=== PATIENT | female | born 1970 | race Caucasian/White ===

== ENCOUNTER 2021-08-21 07:30 | Inpatient (IN) | payer OTHER ==
[~2021-08-21] VITALS: Ht 157.5 cm; Wt 44.2 kg
[2021-08-21] VITALS (23 sets, daily range): BP systolic 80–152; BP diastolic 48–95
[2021-08-21] MEDS ORDERED: 0.9%NACL 1000ML 1,000 ML IV ONE ×2 (08:06→09:30)
[2021-08-21 08:13] LABS: BASOPHILS % (AUTO) 0.2 % (0.0-5.0); EOSINOPHILS % (AUTO) 0.3 % (0.0-8.0); LYMPHOCYTES % (AUTO) 5.7 % (21.0-51.0); MEAN CORPUSCULAR HEMOGLOBIN 27.9 pg (27.0-33.0); MEAN CORPUSCULAR HGB CONC 30.9 g/dL (32.0-36.0); MEAN CORPUSCULAR VOLUME 90.4 fL (79-99); MONOCYTES % (AUTO) 5.3 % (3.0-13.0); NEUTROPHILS % (AUTO) 87.9 % (40.0-77.0); PLATELET COUNT (AUTO) 380 K/uL (130-400); RED BLOOD CELL COUNT(AUTO) 2.08 MIL/uL (4.00-5.50); RED CELL DISTRIBUTION WIDTH 14.6 % (11.0-15.5); WHITE BLOOD COUNT (AUTO) 21.6 K/uL (4.8-10.8)
[2021-08-21 08:22] LABS: HEMATOCRIT 18.8 % (36-48)
[2021-08-21] MEDS ORDERED: HYDROMORPHONE 1 MG INJ ONE (08:23)
[2021-08-21] MEDS ORDERED: ONDANSETRON 4MG INJ ONE (08:23)
[2021-08-21 08:34] LABS: ALBUMIN 2.5 g/dL (3.5-5.0); BILIRUBIN,TOTAL 0.1 mg/dL (0.2-1.0); CREATININE 0.6 mg/dL (0.5-1.5); POTASSIUM 3.4 mmol/L (3.5-5.1); TOTAL PROTEIN, SERUM 5.2 g/dL (6.0-8.3)
[2021-08-21] MEDS ORDERED: 0.9%NACL 1000ML 1,000 ML IV STA (09:18)
[2021-08-21] MEDS ORDERED: ONDANSETRON 4MG INJ IVP ONE (09:30)
[2021-08-21] MEDS ORDERED: HYDROMORPHONE 1 MG INJ IVP ONE (09:30)
[2021-08-21] MEDS ORDERED: FENTANYL CITRATE PF 50 MCG/1 ML 2ML VIAL IVP ONE (10:00)
[2021-08-21 10:28] LABS: RETICULOCYTE % (AUTO) 2.73 % (0.42-2.23)
[2021-08-21] MEDS ORDERED: ACETAMINOPHEN 325 MG TAB PO PRN ×2 (10:30)
[2021-08-21] MEDS ORDERED: ONDANSETRON 4MG INJ IV PRN (10:30)
[2021-08-21 10:32] LABS: INR 1.02 (0.85-1.15); PROTHROMBIN TIME 11.1 SEC (9.6-11.6)
[2021-08-21 10:34] LABS: PARTIAL THROMBOPLASTIN TIME 24.1 SEC (26.3-35.5)
[2021-08-21 10:36] LABS: HEMOGLOBIN A1C 4.2 % (4.0-6.0)
[2021-08-21] MEDS: LACTATED RINGERS 1000ML 1,000 ML IV SCH ×2 (11:10→20:30)
[2021-08-21 11:27] LABS: HEMATOCRIT 18.8 % (36-48)
[2021-08-21] MEDS ORDERED: MIDAZOLAM HCL 1 MG/ML 2ML VIAL ONE (11:29)
[2021-08-21] MEDS ORDERED: LACTATED RINGERS 1000ML 1,000 ML IV ONE (11:30)
[2021-08-21] MEDS ORDERED: CALCIUM GLUC 1GM/10ML VIAL IVPB SCH (11:30)
[2021-08-21] MEDS ORDERED: NOREPINEPHRIN 4MG/NS 250ML 250 ML IV SCH (11:30)
[2021-08-21] MEDS ORDERED: 0.9%NACL 50ML IV SCH (11:30)
[2021-08-21] MEDS ORDERED: LIDOCAINE HCL 1% MDV 50ML VIAL ONE (11:47)
[2021-08-21] MEDS ORDERED: IOHEXOL-350 50ML VIAL IV ONE ×2 (11:49→11:53)
[2021-08-21] MEDS ORDERED: LACTATED RINGERS 1000ML IV SCH (12:00)
[2021-08-21] MEDS ORDERED: ZOSYN 3.375GM +NS 50ML IV SCH (12:00)
[2021-08-21] MEDS ORDERED: NOREPINEPHRINE BITARTRATE 1 MG/1 ML ML IV ONE (12:22)
[2021-08-21 12:24] LABS: HEMATOCRIT 26.2 % (36-48)
[2021-08-21] MEDS ORDERED: FENTANYL CITRATE PF 50 MCG/1 ML 2ML VIAL ONE ×2 (12:27→14:12)
[2021-08-21] MEDS ORDERED: TRANEXAMIC ACID 1000MG/10ML IV SCH (12:30)
[2021-08-21] MEDS ORDERED: IOHEXOL 350 MG/ML 100ML INFUS..BTL IV ONE (13:01)
[2021-08-21] MEDS ORDERED: METOPROLOL TARTRATE 1 MG/ML 5ML VIAL IV ONE (14:00)
[2021-08-21] MEDS ORDERED: FENTANYL CITRATE PF 50 MCG/1 ML 2ML VIAL IVP PRN (14:30)
[2021-08-21 14:31] LABS: HEMATOCRIT 31.5 % (36-48)
[2021-08-21] MEDS ORDERED: TRAN650T5 PO (14:41)
[2021-08-21] MEDS ORDERED: GABA-533 PO (14:41)
[2021-08-21] MEDS ORDERED: FENT12PAT TD (14:41)
[2021-08-21] MEDS ORDERED: HYDR4TAB56 PO (14:43)
[2021-08-21] MEDS ORDERED: TRANEXAMIC ACID 1,000 MG in 0.9%NACL 100ML 100 ML IV SCH (15:00)
[2021-08-21] MEDS: ZOSYN 3.375GM +NS 50ML IV SCH (15:10)
[2021-08-21] MEDS: FENTANYL CITRATE PF 50 MCG/1 ML 2ML VIAL IVP PRN (16:17)
[2021-08-21 18:01] LABS: HEMATOCRIT 29.5 % (36-48)
[2021-08-21] MEDS: MORPHINE 10MG VIAL IVP PRN ×2 (18:15→21:47)
[2021-08-21 21:47] LABS: HEMATOCRIT 25.8 % (36-48)
[2021-08-21 23:59] LABS: HEMATOCRIT 25.2 % (36-48)
[2021-08-22] VITALS (24 sets, daily range): BP systolic 105–176; BP diastolic 59–99
[2021-08-22] MEDS: FENTANYL CITRATE PF 50 MCG/1 ML 2ML VIAL IVP PRN ×2 (02:13→07:52)
[2021-08-22] MEDS: ZOSYN 3.375GM +NS 50ML IV SCH ×4 (03:30→20:09)
[2021-08-22] MEDS: MORPHINE 10MG VIAL IVP PRN ×2 (03:39→09:22)
[2021-08-22] MEDS: LACTATED RINGERS 1000ML 1,000 ML IV SCH ×2 (06:59→17:07)
[2021-08-22 08:06] LABS: BASOPHILS % (AUTO) 0.1 % (0.0-5.0); EOSINOPHILS % (AUTO) 0.1 % (0.0-8.0); HEMATOCRIT 32.5 % (36-48); LYMPHOCYTES % (AUTO) 5.1 % (21.0-51.0); MEAN CORPUSCULAR HEMOGLOBIN 27.9 pg (27.0-33.0); MEAN CORPUSCULAR HGB CONC 34.5 g/dL (32.0-36.0); MEAN CORPUSCULAR VOLUME 80.8 fL (79-99); NEUTROPHILS % (AUTO) 86.2 % (40.0-77.0); PLATELET COUNT (AUTO) 138 K/uL (130-400); RED BLOOD CELL COUNT(AUTO) 4.02 MIL/uL (4.00-5.50); RED CELL DISTRIBUTION WIDTH 15.4 % (11.0-15.5); WHITE BLOOD COUNT (AUTO) 23.2 K/uL (4.8-10.8)
[2021-08-22 08:16] LABS: ALBUMIN 2.5 g/dL (3.5-5.0); BILIRUBIN,TOTAL 0.7 mg/dL (0.2-1.0); POTASSIUM 4.1 mmol/L (3.5-5.1); TOTAL PROTEIN, SERUM 5.3 g/dL (6.0-8.3)
[2021-08-22] MEDS ORDERED: GABAPENTIN 100 MG CAPSULE PO SCH (08:30)
[2021-08-22] MEDS: PANTOPRAZOLE 40 MG/VIAL IVP SCH (09:20)
[2021-08-22] MEDS: GABAPENTIN 100 MG CAPSULE PO PRN ×2 (09:22→20:58)
[2021-08-22] MEDS: HYDROMORPHONE PCA 10 MG/50 ML 50 ML IV PRN (11:17)
[2021-08-22] MEDS: DOCUSATE SODIUM 100 MG CAP PO SCH ×2 (11:42→17:08)
[2021-08-22] MEDS: ACETAMINOPHEN 500 MG TABLET PO SCH ×3 (11:42→22:46)
[2021-08-22] MEDS ORDERED: 0.9%NACL 50ML 50 ML IV ONE (20:01)
[2021-08-22 21:33] LABS: HEMATOCRIT 28.3 % (36-48)
[2021-08-23] VITALS (23 sets, daily range): BP systolic 113–186; BP diastolic 59–87
[2021-08-23] MEDS: DOCUSATE SODIUM 100 MG CAP PO SCH ×3 (03:52→18:23)
[2021-08-23] MEDS: LACTATED RINGERS 1000ML 1,000 ML IV SCH ×3 (03:53→18:23)
[2021-08-23] MEDS: ZOSYN 3.375GM +NS 50ML IV SCH ×3 (03:53→18:23)
[2021-08-23 03:55] LABS: BASOPHILS % (AUTO) 0.1 % (0.0-5.0); EOSINOPHILS % (AUTO) 0.1 % (0.0-8.0); HEMATOCRIT 27.6 % (36-48); LYMPHOCYTES % (AUTO) 4.2 % (21.0-51.0); MEAN CORPUSCULAR HEMOGLOBIN 27.9 pg (27.0-33.0); MEAN CORPUSCULAR HGB CONC 33.3 g/dL (32.0-36.0); MEAN CORPUSCULAR VOLUME 83.6 fL (79-99); MONOCYTES % (AUTO) 7.4 % (3.0-13.0); NEUTROPHILS % (AUTO) 87.1 % (40.0-77.0); PLATELET COUNT (AUTO) 102 K/uL (130-400); RED CELL DISTRIBUTION WIDTH 15.7 % (11.0-15.5); WHITE BLOOD COUNT (AUTO) 17.2 K/uL (4.8-10.8)
[2021-08-23 04:15] LABS: ALBUMIN 2.1 g/dL (3.5-5.0); BILIRUBIN,TOTAL 0.5 mg/dL (0.2-1.0); CREATININE 0.5 mg/dL (0.5-1.5); POTASSIUM 3.4 mmol/L (3.5-5.1)
[2021-08-23] MEDS: ACETAMINOPHEN 500 MG TABLET PO SCH (05:18)
[2021-08-23] MEDS: GABAPENTIN 100 MG CAPSULE PO PRN (05:19)
[2021-08-23] MEDS ORDERED: GABAPENTIN 100 MG CAPSULE PO SCH (08:30)
[2021-08-23] MEDS ORDERED: POTASSIUM CHLORIDE 20MEQ/100ML 100 ML IV PRN (08:30)
[2021-08-23] MEDS ORDERED: POTASSIUM CHLORIDE 10% ELIXIR 20 MEQ/15 ML UDCUP PO PRN (08:30)
[2021-08-23] MEDS ORDERED: LIDOCAINE HCL-MPF 1% 2ML VIAL IV PRN (08:30)
[2021-08-23] MEDS: SENNOSIDES 8.6 MG TABLET PO SCH (09:10)
[2021-08-23] MEDS: PANTOPRAZOLE 40 MG/VIAL IVP SCH (09:10)
[2021-08-23 09:44] LABS: HEMATOCRIT 27.2 % (36-48)
[2021-08-23] MEDS ORDERED: 0.9%NACL 50ML 50 ML IV ONE ×2 (11:48→17:28)
[2021-08-23] MEDS: ACETAMINOPHEN WITH CODEINE 1 TAB TAB PO PRN (18:23)
[2021-08-23] MEDS: KCL 20 MEQ ERTAB PO PRN (18:24)
[2021-08-23 21:44] LABS: HEMATOCRIT 28.8 % (36-48)
[2021-08-24] VITALS (22 sets, daily range): BP systolic 140–176; BP diastolic 35–88
[2021-08-24] MEDS: DOCUSATE SODIUM 100 MG CAP PO SCH ×3 (01:56→18:00)
[2021-08-24] MEDS: ZOSYN 3.375GM +NS 50ML IV SCH ×3 (04:02→19:57)
[2021-08-24 04:15] LABS: BASOPHILS % (AUTO) 0.1 % (0.0-5.0); EOSINOPHILS % (AUTO) 0.1 % (0.0-8.0); HEMATOCRIT 27.8 % (36-48); LYMPHOCYTES % (AUTO) 3.6 % (21.0-51.0); MEAN CORPUSCULAR HEMOGLOBIN 27.7 pg (27.0-33.0); MEAN CORPUSCULAR HGB CONC 32.7 g/dL (32.0-36.0); MEAN CORPUSCULAR VOLUME 84.5 fL (79-99); MONOCYTES % (AUTO) 6.2 % (3.0-13.0); NEUTROPHILS % (AUTO) 88.9 % (40.0-77.0); PLATELET COUNT (AUTO) 140 K/uL (130-400); RED BLOOD CELL COUNT(AUTO) 3.29 MIL/uL (4.00-5.50); RED CELL DISTRIBUTION WIDTH 15.3 % (11.0-15.5); WHITE BLOOD COUNT (AUTO) 20.1 K/uL (4.8-10.8)
[2021-08-24] MEDS: GABAPENTIN 100 MG CAPSULE PO PRN ×2 (04:19→21:10)
[2021-08-24] MEDS: ACETAMINOPHEN WITH CODEINE 1 TAB TAB PO PRN ×3 (04:19→21:10)
[2021-08-24 04:32] LABS: CREATININE 0.4 mg/dL (0.5-1.5); MAGNESIUM 1.8 mg/dL (1.80-2.40); POTASSIUM 3.2 mmol/L (3.5-5.1)
[2021-08-24 04:33] LABS: ALBUMIN 2.1 g/dL (3.5-5.0); BILIRUBIN,TOTAL 0.5 mg/dL (0.2-1.0); TOTAL PROTEIN, SERUM 5.7 g/dL (6.0-8.3)
[2021-08-24] MEDS: HYDROMORPHONE PCA 10 MG/50 ML 50 ML IV PRN (06:00)
[2021-08-24] MEDS: PANTOPRAZOLE 40 MG/VIAL IVP SCH (07:56)
[2021-08-24] MEDS: SENNOSIDES 8.6 MG TABLET PO SCH (07:56)
[2021-08-24] MEDS: LACTATED RINGERS 1000ML 1,000 ML IV SCH (08:01)
[2021-08-24] MEDS: KCL 20 MEQ ERTAB PO PRN ×3 (08:29→12:26)
[2021-08-24] MEDS ORDERED: MAGNESIUM 2GM PREMIX 50ML 50 ML IV PRN (10:30)
[2021-08-24] MEDS ORDERED: 0.9%NACL 50ML 50 ML IV ONE ×2 (10:51→19:41)
[2021-08-24] MEDS ORDERED: COMPOUND IV MISC 1 EACH IVSOLN MISC PRN (11:00)
[2021-08-25] VITALS (7 sets, daily range): BP systolic 138–173; BP diastolic 56–86
[2021-08-25] MEDS: DOCUSATE SODIUM 100 MG CAP PO SCH ×3 (01:18→17:25)
[2021-08-25] MEDS: ZOSYN 3.375GM +NS 50ML IV SCH ×3 (01:18→18:48)
[2021-08-25] MEDS: HYDROMORPHONE PCA 10 MG/50 ML 50 ML IV PRN (01:24)
[2021-08-25] MEDS: ACETAMINOPHEN WITH CODEINE 1 TAB TAB PO PRN ×2 (03:26→11:52)
[2021-08-25] MEDS: GABAPENTIN 100 MG CAPSULE PO PRN ×2 (03:26→11:53)
[2021-08-25 04:33] LABS: BASOPHILS % (AUTO) 0.3 % (0.0-5.0); EOSINOPHILS % (AUTO) 0.8 % (0.0-8.0); HEMATOCRIT 28.3 % (36-48); LYMPHOCYTES % (AUTO) 4.3 % (21.0-51.0); MEAN CORPUSCULAR HGB CONC 32.9 g/dL (32.0-36.0); MEAN CORPUSCULAR VOLUME 85.2 fL (79-99); MONOCYTES % (AUTO) 6.3 % (3.0-13.0); NEUTROPHILS % (AUTO) 87.4 % (40.0-77.0); PLATELET COUNT (AUTO) 181 K/uL (130-400); RED BLOOD CELL COUNT(AUTO) 3.32 MIL/uL (4.00-5.50); RED CELL DISTRIBUTION WIDTH 15.2 % (11.0-15.5)
[2021-08-25 04:50] LABS: CREATININE 0.5 mg/dL (0.5-1.5); MAGNESIUM 2.1 mg/dL (1.80-2.40); POTASSIUM 3.7 mmol/L (3.5-5.1)
[2021-08-25] MEDS: KCL 20 MEQ ERTAB PO PRN ×2 (05:01→17:18)
[2021-08-25] MEDS: PANTOPRAZOLE 40 MG/VIAL IVP SCH (09:00)
[2021-08-25] MEDS: IRON SUCROSE COMPLEX 100 MG in 0.9%NACL 50ML 50 ML IV SCH (11:58)
[2021-08-25] MEDS: POLYETHYLENE GLYCOL 3350 17 GM POWD.PACK PO SCH (12:16)
[2021-08-25] MEDS: SENNOSIDES 8.6 MG TABLET PO SCH (12:16)
[2021-08-25 20:56] LABS: HEMATOCRIT 29.9 % (36-48)
[2021-08-25] MEDS: GABAPENTIN 300 MG CAPSULE PO SCH (21:06)
[2021-08-26] VITALS (7 sets, daily range): BP systolic 157–179; BP diastolic 62–90
[2021-08-26] MEDS: DOCUSATE SODIUM 100 MG CAP PO SCH ×4 (01:45→17:16)
[2021-08-26] MEDS: ACETAMINOPHEN WITH CODEINE 1 TAB TAB PO PRN ×2 (01:46→12:16)
[2021-08-26 04:10] LABS: HEMATOCRIT 30.6 % (36-48); MEAN CORPUSCULAR HEMOGLOBIN 27.5 pg (27.0-33.0); MEAN CORPUSCULAR HGB CONC 31.7 g/dL (32.0-36.0); MEAN CORPUSCULAR VOLUME 86.7 fL (79-99); RED BLOOD CELL COUNT(AUTO) 3.53 MIL/uL (4.00-5.50); RED CELL DISTRIBUTION WIDTH 15.1 % (11.0-15.5); RETICULOCYTE % (AUTO) 4.14 % (0.42-2.23); WHITE BLOOD COUNT (AUTO) 16.4 K/uL (4.8-10.8)
[2021-08-26] MEDS: ZOSYN 3.375GM +NS 50ML IV SCH ×3 (04:19→18:10)
[2021-08-26 04:34] LABS: % IRON SATURATION 11.1 % (22-44)
[2021-08-26] MEDS: POLYETHYLENE GLYCOL 3350 17 GM POWD.PACK PO SCH (10:08)
[2021-08-26] MEDS: IRON SUCROSE COMPLEX 100 MG in 0.9%NACL 50ML 50 ML IV SCH (10:08)
[2021-08-26] MEDS: GABAPENTIN 300 MG CAPSULE PO SCH ×3 (10:08→21:16)
[2021-08-26] MEDS: PANTOPRAZOLE 40 MG/VIAL IVP SCH (10:08)
[2021-08-26] MEDS: SENNOSIDES 8.6 MG TABLET PO SCH (10:09)
[2021-08-26] MEDS: HYDROMORPHONE PCA 10 MG/50 ML 50 ML IV PRN (21:16)
[2021-08-27] MEDS: ACETAMINOPHEN WITH CODEINE 1 TAB TAB PO PRN ×4 (00:51→22:46)
[2021-08-27] MEDS: DOCUSATE SODIUM 100 MG CAP PO SCH ×3 (01:14→18:05)
[2021-08-27] MEDS ORDERED: MORPHINE 2 MG SYG IVP ONE (01:30)
[2021-08-27] MEDS: ZOSYN 3.375GM +NS 50ML IV SCH ×3 (02:22→20:58)
[2021-08-27 03:52] VITALS: BP 176/72
[2021-08-27 06:49] LABS: BASOPHILS % (AUTO) 0.4 % (0.0-5.0); EOSINOPHILS % (AUTO) 0.7 % (0.0-8.0); HEMATOCRIT 30.9 % (36-48); LYMPHOCYTES % (AUTO) 7.1 % (21.0-51.0); MEAN CORPUSCULAR HEMOGLOBIN 28.4 pg (27.0-33.0); MEAN CORPUSCULAR HGB CONC 33.3 g/dL (32.0-36.0); MEAN CORPUSCULAR VOLUME 85.1 fL (79-99); MONOCYTES % (AUTO) 8.2 % (3.0-13.0); PLATELET COUNT (AUTO) 273 K/uL (130-400); RED BLOOD CELL COUNT(AUTO) 3.63 MIL/uL (4.00-5.50); RED CELL DISTRIBUTION WIDTH 14.8 % (11.0-15.5); WHITE BLOOD COUNT (AUTO) 15.6 K/uL (4.8-10.8)
[2021-08-27 07:00] LABS: CREATININE 0.5 mg/dL (0.5-1.5); POTASSIUM 3.8 mmol/L (3.5-5.1)
[2021-08-27 07:17] LABS: % IRON SATURATION 10.3 % (22-44)
[2021-08-27 07:34] VITALS: BP 140/79
[2021-08-27] MEDS: GABAPENTIN 300 MG CAPSULE PO SCH ×3 (09:20→20:58)
[2021-08-27] MEDS: POLYETHYLENE GLYCOL 3350 17 GM POWD.PACK PO SCH (09:20)
[2021-08-27] MEDS: PANTOPRAZOLE 40 MG/VIAL IVP SCH (09:20)
[2021-08-27] MEDS: IRON SUCROSE COMPLEX 100 MG in 0.9%NACL 50ML 50 ML IV SCH (09:20)
[2021-08-27] MEDS: SENNOSIDES 8.6 MG TABLET PO SCH (09:20)
[2021-08-27 11:06] VITALS: BP 154/85
[2021-08-27] MEDS ORDERED: HYDROCODONE/ACETAMINOPHEN 5/325 MG TAB PO PRN (15:00)
[2021-08-27 15:33] VITALS: BP 154/68
[2021-08-27] MEDS: HYDROCODONE/ACETAMINOPHEN 5/325 MG TAB PO PRN (18:05)
[2021-08-27 20:00] VITALS: BP 167/74
[2021-08-28] VITALS: BP 196/92
[2021-08-28] MEDS: DOCUSATE SODIUM 100 MG CAP PO SCH ×3 (01:15→16:42)
[2021-08-28] MEDS: HYDROCODONE/ACETAMINOPHEN 5/325 MG TAB PO PRN ×2 (03:01→09:03)
[2021-08-28] MEDS: ZOSYN 3.375GM +NS 50ML IV SCH ×3 (03:30→20:16)
[2021-08-28 04:00] VITALS: BP 149/88
[2021-08-28] MEDS ORDERED: IRON SUCROSE COMPLEX 500 MG in 0.9%NACL 50ML 50 ML IV SCH (07:00)
[2021-08-28] MEDS: POLYETHYLENE GLYCOL 3350 17 GM POWD.PACK PO SCH (09:02)
[2021-08-28] MEDS: GABAPENTIN 300 MG CAPSULE PO SCH ×3 (09:03→20:18)
[2021-08-28] MEDS: PANTOPRAZOLE 40 MG/VIAL IVP SCH (09:04)
[2021-08-28] MEDS: SENNOSIDES 8.6 MG TABLET PO SCH (09:04)
[2021-08-28 09:26] VITALS: BP 164/92
[2021-08-28] MEDS ORDERED: FENTANYL 25 MCG/HR PATCH TD SCH (10:02)
[2021-08-28] MEDS ORDERED: OXYCODONE HCL 20 MG TAB.SR.12H PO SCH (11:00)
[2021-08-28 11:53] VITALS: BP 159/93
[2021-08-28] MEDS: KCL 20 MEQ ERTAB PO PRN ×2 (16:45→18:42)
[2021-08-28 16:47] VITALS: BP 154/85
[2021-08-28 19:00] VITALS: BP 167/93
[2021-08-28] MEDS: OXYCODONE HCL 10 MG TAB.SR.12H PO SCH (20:18)
[2021-08-29] VITALS: BP 161/96
[2021-08-29] MEDS: DOCUSATE SODIUM 100 MG CAP PO SCH ×2 (00:23→08:58)
[2021-08-29] MEDS: HYDROCODONE/ACETAMINOPHEN 5/325 MG TAB PO PRN ×3 (00:25→11:58)
[2021-08-29 04:00] VITALS: BP 158/89
[2021-08-29] MEDS: ZOSYN 3.375GM +NS 50ML IV SCH ×2 (04:24→11:58)
[2021-08-29 05:03] LABS: HEMATOCRIT 32.7 % (36-48); MEAN CORPUSCULAR HEMOGLOBIN 27.9 pg (27.0-33.0); MEAN CORPUSCULAR HGB CONC 31.5 g/dL (32.0-36.0); MEAN CORPUSCULAR VOLUME 88.6 fL (79-99); RED BLOOD CELL COUNT(AUTO) 3.69 MIL/uL (4.00-5.50); RED CELL DISTRIBUTION WIDTH 15.1 % (11.0-15.5); WHITE BLOOD COUNT (AUTO) 10.8 K/uL (4.8-10.8)
[2021-08-29 05:14] LABS: CREATININE 0.6 mg/dL (0.5-1.5); POTASSIUM 4.1 mmol/L (3.5-5.1)
[2021-08-29 08:00] VITALS: BP_SYST 120; BP_SYST 146; BP_DIAS 66; BP_DIAS 89
[2021-08-29] MEDS: POLYETHYLENE GLYCOL 3350 17 GM POWD.PACK PO SCH (08:58)
[2021-08-29] MEDS: SENNOSIDES 8.6 MG TABLET PO SCH (08:58)
[2021-08-29] MEDS: GABAPENTIN 300 MG CAPSULE PO SCH ×2 (09:00→14:18)
[2021-08-29] MEDS: PANTOPRAZOLE 40 MG/VIAL IVP SCH (09:00)
[2021-08-29] MEDS: OXYCODONE HCL 10 MG TAB.SR.12H PO SCH (09:02)
[2021-08-29] MEDS ORDERED: GABA300C PO (11:05)
[2021-08-29] MEDS ORDERED: HYDR-4060 PO (11:05)
[2021-08-29] MEDS ORDERED: AMOX-429 PO (11:05)
[2021-08-29] MEDS ORDERED: [UNRECOGNIZED DRUG - CODE] PO (11:05)
[2021-08-29 12:00] VITALS: BP 135/81
[2021-08-29] MEDS ORDERED: OXYC10TA PO (14:26)
[2021-08-29 16:00] VITALS: BP 166/69
== END 2021-08-29 16:15 | disposition home or self-care (01) | DRG 981 ==
LOC: EDH 07:30 → EDHIP 07:31 → 2DH 13:37 → 4CH 08-25 01:00
PROVIDERS: ADMIT Internal Medicine; ATTEND Internal Medicine
PROC: 04LF3DZ Occlusion of Left Internal Iliac Artery with Intraluminal Device, Percutaneous Approach (ICD-10-PCS; principal; 2021-08-21)
PROC: 04LE3DZ Occlusion of Right Internal Iliac Artery with Intraluminal Device, Percutaneous Approach (ICD-10-PCS; 2021-08-21)
PROC: B41J1ZZ Fluoroscopy of Other Lower Arteries using Low Osmolar Contrast (ICD-10-PCS; 2021-08-21)
PROC: 30233K1 Transfusion of Nonautologous Frozen Plasma into Peripheral Vein, Percutaneous Approach (ICD-10-PCS; 2021-08-21)
PROC: 30233N1 Transfusion of Nonautologous Red Blood Cells into Peripheral Vein, Percutaneous Approach (ICD-10-PCS; 2021-08-21)
PROC: 30233R1 Transfusion of Nonautologous Platelets into Peripheral Vein, Percutaneous Approach (ICD-10-PCS; 2021-08-21)
DX: C54.1 Malignant neoplasm of endometrium (principal); R57.8 Other shock; D62 Acute posthemorrhagic anemia; R64 Cachexia; Z68.1 Body mass index [BMI] 19.9 or less, adult; R19.00 Intra-abdominal and pelvic swelling, mass and lump, unspecified site; N93.9 Abnormal uterine and vaginal bleeding, unspecified; N93.8 Other specified abnormal uterine and vaginal bleeding; D72.829 Elevated white blood cell count, unspecified; F17.210 Nicotine dependence, cigarettes, uncomplicated; C53.9 Malignant neoplasm of cervix uteri, unspecified; D63.8 Anemia in other chronic diseases classified elsewhere; Z20.822 Contact with and (suspected) exposure to COVID-19
CPT/HCPCS: 36246; 36415; 36430; 37244; 71045; 74176; 75625; 75716; 76856; 80048; 80053; 82550; 82607; 82728; 82746; 83036; 83540; 83550; 83605; 83615; 83690; 83735; 84132; 85014; 85018; 85025; 85027; 85045; 85384; 85610; 85730; 86850; 86900; 86901; 86922; 86923; 86927; 87635; 99291; 99292; C1760; C1769; C1894; C9113; G0378; J1170; J1644; J1756; J2250; J2270; J2405; J2543; J3010; J3475; J3490; J7030; J7120; P9012; P9016; P9017; P9034; Q9967